=== PATIENT | male | born 1990 | race Caucasian/White ===

== ENCOUNTER 2024-01-26 16:15 | Emergency (ER) | payer OTHER, SELFPAY ==
[2024-01-26 16:42] VITALS: BP 144/89
--- NOTE | 2024-01-26 19:40 | ED.MUSCINJ ---
HPI-Injury
General
Chief Complaint: Musculo-Skeletal Complaint
Source: patient
Exam Limitations: none
Time Seen by Provider: 01/26/24 17:09
Nursing documentation reviewed up to this point in time: agreed with
Travel History
Have you had any contact with someone who has COVID-19?: No
Do you have any symptoms of coronavirus? Fever > 100 degrees, chills, cough, shortness of breath, sore throat, loss of taste or smell, muscle aches, or headache?: No
History of Present Illness-Injury
Is this injury a work related problem?: No
Is pt an associate of [facility]?: No
Initial Injury comments:
Tripped and fell this AM, hit his hand on furniture. Complains of pain and swelling to right hand. Brought self to ED for eval.
Past History
Past History
ED Past Medical History: None
ED Past Surgical History: None
Review of Systems
Review of Systems
Allergies reviewed?: Yes
All Other Systems: ROS reviewed and negative except as documented in HPI and ROS
Constitutional: Reports no symptoms
Musculoskeletal: Reports joint pain (pain and swelling to right hand)
Skin: Reports no symptoms
Neurological: Reports no symptoms
Psychiatric: Reports no symptoms
Musculoskeletal Injury Exam
Musculoskeletal Injury Exam
Right Hand:
Pain with Movement?: Moderate
Tender to palpation?: Moderate
Soft tissue swelling?: Moderate
External deformity and angulation?: None
Joint effusion?: None
Contusion?: Moderate
Hematoma-local bleeding into tissue?: None
Strain- Sprain- Tear (Connective tissue injury)?: Moderate
Crepitus with movement?: No
Malalignment/deformity?: No
Range of motion: Limited
Distal skin color and temperature: normal-warm & good color
Capillary Refill: normal
Normal distal neurovascular exam?: Yes
Peripheral Pulses: radial (right): 3+
Phy Exam
General Physical Exam
General Presentation: well appearing and no apparent distress
General age: appears stated age
General Skin: warm and dry
General Habitus: normal
General Mental: alert
Musculoskeletal Exam
Musculoskeletal Exam: neuro vasc intact
Skin Exam
Skin Exam: normal color, warm/dry and no rash
Psychiatric Exam
Psychiatric Exam: normal mood/affect
Injury Course
Orders/Labs/Results
Orders:
Orders
01/26/24 16:47
CR Hand - Right Min 3 Views Urgent
Comment:
Reason For Exam: pain/injury/swelling
01/26/24 17:51
CT Upper Ext W/o Iv Cont Rt Urgent
Comment:
Reason For Exam: attn right hand
01/26/24 19:22
Sling Right-Treatment ONCE
Ulnar Gutter Right-Treatment ONCE
*Radiology
Radiology exam reviewed: radiology read reviewed
*Pulse Oximetry
Patient hypoxic: no
*Critical Care Note
Total Time (30-74mins, 75-104mins- exclusive of procedures): Not Applicable
Update Note
Update Note:
Case discussed with Dr. Polk. No need for in dept. reduction as it is doubtful it will hold. Will need surgical intervention. Requests CT of hand which has been completed Patient placed in splint and discharged home. Will follow up with
Felicitas on Monday in office at 11AM Patient is agreeable to plan.
ED Attending Note
-
Portions of this chart may have been created with voice recognition software.� Occasional wrong word or��sound alike� substitutions may have occurred due to the inherent limitations of voice recognition software.
Discharge Plan
Departure
Patient Disposition: Home (Routine Discharge)
Date of Disposition: 01/26/24
Time of Disposition: 19:23
Patient with high blood pressure during this ER visit?: No
Condition: Good
Covid-19: Not Applicable
Discharge Problem:
Closed dislocation of metacarpal (bone), proximal end, Closed hamate fracture
Instructions: Hand Fracture (DC), Ibuprofen, How to Use a Shoulder Sling, Splint Care ED
Referrals:
Richi Duvall DO [Family Provider] -
Viral Polk MD [Active] - 01/29/24 11:00 am (Follow up with Dr. Polk MondayJanuary [address] [facility] at 11:00AM)
Activity Restrictions/Additional Instructions:
Follow up with Dr. Polk on MondayJanuary 28 at 11:00AM in the [facility]. YOu will need to contact your primary care provider and ast to have a referral faxed to the office for that visit.
Interventions
Interventions:
*Risk Screen - Suicide Last Done: 01/26/24 16:42
*Neglect/Abuse Screening Last Done: 01/26/24 16:42
*ED COVID-19 Vaccine History Last Done: 01/26/24 16:42
ED-Musculoskeletal Assessment Last Done: 01/26/24 19:29
== END 2024-01-26 20:01 | disposition home or self-care (01) ==
LOC: EMR 16:15
PROVIDERS: EMERGENCY PHYSICIAN Emergency Medicine; FAMILY PHYSICIAN Internal Medicine
DX: S63.064A Dislocation of metacarpal (bone), proximal end of right hand, initial encounter (principal); S62.141A Displaced fracture of body of hamate [unciform] bone, right wrist, initial encounter for closed fracture; W01.190A Fall on same level from slipping, tripping and stumbling with subsequent striking against furniture, initial encounter
CPT/HCPCS: 99284; 29125; 73130; 73200